=== PATIENT | male | born 1990 ===

== ENCOUNTER 2021-11-23 12:24 | Emergency (ER) | payer BC ==
[2021-11-23] MEDS ORDERED: Lidocaine 1% 5 ML VIAL INJECT ONE (12:45)
[2021-11-23] MEDS ORDERED: Lidocaine 2% Viscous Solution 15 ML UD PO ONE (13:06)
[2021-11-23] MEDS ORDERED: Benzocaine 20% Topical Spray UD MUCMEM ONE (13:06)
== END 2021-11-23 13:39 | disposition home or self-care (01) ==
LOC: MW.ED 12:24
DX: K04.7 Periapical abscess without sinus (principal); F17.210 Nicotine dependence, cigarettes, uncomplicated
CPT/HCPCS: 41800; 99282; A9270; 99283